=== PATIENT | female | born 2000 | race African-American/Black ===

== ENCOUNTER 2023-11-23 20:32 | Emergency (ER) | payer MEDICAID ==
[~2023-11-23] VITALS: Ht 172.7 cm; Wt 55.0 kg
[2023-11-23 20:46] VITALS: O2SAT 98
[2023-11-23 22:00] VITALS: BP 113/59; PULSE 60; RESP 20; TEMP 98.3; O2SAT 100
== END 2023-11-23 22:49 | disposition home or self-care (01) ==
LOC: ER 20:32
DX: S01.01XD Laceration without foreign body of scalp, subsequent encounter (principal); J45.909 Unspecified asthma, uncomplicated; X58.XXXD Exposure to other specified factors, subsequent encounter
CPT/HCPCS: 99281